=== PATIENT | female | born 1935 | race Caucasian/White ===

== ENCOUNTER 2023-01-03 11:10 | Inpatient (IN) | payer OTHER, MEDICARE ==
[2023-01-03] MEDS ORDERED: ASPIRIN 325 MG TABLET PO ONE (11:18)
[2023-01-03] MEDS ORDERED: SODIUM CHLORIDE 1,000 ML IV SCH (11:30)
[2023-01-03] MEDS ORDERED: ASPIRIN 325 MG TABLET ONE (11:38)
[2023-01-03 11:43] LABS: HEMATOCRIT 46.4 % (32.4-45.2); HEMOGLOBIN 15.9 G/dL (10.7-15.3); MCHC 34.2 g/dl (32.0-36.0); MEAN CELL VOLUME 90.7 fl (80-96); MEAN PLT VOLUME 6.9 fl (7.5-11.1); PLATELET COUNT 191.7 10^3/uL (134-434); RBC 5.12 10^6/uL (3.60-5.2); RDW 13.6 % (11.6-15.6); WHITE BLOOD COUNT 6.7 10^3/uL (4.0-10.8)
[2023-01-03 12:01] LABS: INR 1.03 (0.83-1.09); PROTHROMBIN TIME (PATIENT) 11.9 SEC (9.7-13.0)
[2023-01-03 12:03] LABS: ACTIVATED PTT 31.4 SECONDS (25.2-36.5)
[2023-01-03 12:10] LABS: ALBUMIN 4.2 g/dl (3.4-5.0); BILIRUBIN,TOTAL 0.7 mg/dl (0.2-1); CALCIUM 9.4 mg/dl (8.5-10.1); CREATININE 0.6 mg/dl (0.6-1.3); TOT PROT 6.6 g/dl (6.4-8.2)
[2023-01-03 12:28] LABS: PLATELET ESTIMATE ADEQUATE
[2023-01-03] MEDS ORDERED: CLOPIDOGREL BISULFATE 300 MG TABLET PO ONE (12:53)
[2023-01-03] MEDS ORDERED: CLOPIDOGREL BISULFATE 300 MG TABLET ONE (13:07)
[2023-01-03 18:58] VITALS: BMI 31.8
[2023-01-03] MEDS ORDERED: MECLIZINE HCL 12.5 MG TABLET PO PRN (21:41)
[2023-01-03] MEDS ORDERED: ATORVASTATIN CA 10 MG TABLET (FP) PO SCH (22:00)
[2023-01-04 01:56] VITALS: RESP 18
[2023-01-04 06:17] VITALS: BP 134/59; PULSE 73; TEMP 97.8
[2023-01-04 08:04] LABS: HEMATOCRIT 39.3 % (32.4-45.2); HEMOGLOBIN 13.5 G/dL (10.7-15.3); MCHC 34.4 g/dl (32.0-36.0); MEAN CELL VOLUME 90.2 fl (80-96); MEAN PLT VOLUME 7.1 fl (7.5-11.1); RBC 4.36 10^6/uL (3.60-5.2); RDW 13.5 % (11.6-15.6); WHITE BLOOD COUNT 5.2 10^3/uL (4.0-10.8)
[2023-01-04 08:37] LABS: CALCIUM 8.6 mg/dl (8.5-10.1); CREATININE 0.6 mg/dl (0.6-1.3); POTASSIUM 3.8 mmol/L (3.5-5.1)
[2023-01-04] MEDS ORDERED: ENOXAPARIN NA (PORCINE) 40 MG/0.4 ML DISP.SYRIN SQ SCH (10:00)
== END 2023-01-04 10:24 | disposition home or self-care (01) | DRG 69 ==
LOC: FER 11:10 → INTOOBSV 13:14 → FM/S 13:14 → OBSVTOIN 14:47 → FM/S 15:56
PROVIDERS: ADMIT Internal Medicine
DX: G45.0 Vertebro-basilar artery syndrome (principal); I10 Essential (primary) hypertension; E78.5 Hyperlipidemia, unspecified
CPT/HCPCS: 36415; 70496-TC; 70498-TC; 70544-TC; 71045-TC-FY; 80048; 80053; 80061; 82607; 82746; 83036; 84439; 84443; 84484; 85027; 85610; 85730; 86850; 86900; 86901; 93005; 97116-GP; 97161-GP; 99285-25; G0378